=== PATIENT | female | born 1995 | race Caucasian/White ===

== ENCOUNTER 2016-05-24 13:28 | Emergency (ER) | payer MEDICAID, OTHER ==
[~2016-05-24 13:28] MED LIST: PREN1CAP33 PO
[2016-05-24 13:35] VITALS: BP 125/70; PULSE 88; RESP 15; TEMP 98; O2SAT 97
[2016-05-24 14:19] VITALS: BP 124/71; PULSE 89
[2016-05-24] MEDS ORDERED: ALUMINUM/MAGNESIUM/SIMETH 30 ML CUP PO ONE (15:15)
--- NOTE | 2016-05-24 15:44 | PD ---
HPI Chief Complaint Heartburn Date Seen: May 24, 2016 Time Seen: 15:00 Travel History International Travel<30 Days: No Contact w/Intl Traveler<30Days: No Known Affected Area: No History of Present Illness HPI 21-year-old 004 at 17 Weeks of Gestation, EDC 10/31/16, Patient Presents to OB ED Complaining of Epigastric Pain and Heartburn. Patient stated that Pain occurs Whenever She Eats, Drinks, hungry and at Nighttime. She denies cramping , contractions, leakage of fluids, vaginal bleeding. [facility] with [facility]. course is unremarkable. Patient speaks only [place] and interview was with an home health aide. Para: 4 : 5 Miscarriage: 0 : 0 History Past Medical History Narrative Medical Denies Medical History: Denies Significant Hx Obstetric History Obstetric History Spontaneous vaginal delivery 4 Past Surgical History Narrative Surgical Denies Surgical History: No Previous Surgery Family History Narrative Family History Maternal grandfather with diabetes Social History Alcohol Use: No Tobacco Use: No Substance Abuse: No Allergies-Medications (Allergen,Severity, Reaction): Coded Allergies: No Known Allergies (Unverified , 05/24/16) Home Meds Active Scripts Vit W/ Fe Polysacch C (Vitafol Fe+ 90-1-200 & 50 mg)1 Cap Cap1 Tab PO DAILY #30 BOTTLE Ref 11 Prov:Jazmine Frankel 05/07/16 Review of Systems Except as stated in HPI: all other systems reviewed are Neg Gastrointestinal: Indigestion, Other (epigastric pain heartburn) Physical Exam Narrative GENERAL: Well-nourished, well-developed patient. SKIN: Warm and dry. HEAD: Normocephalic and atraumatic. EYES: No scleral icterus. No injection or drainage. ENT: No nasal drainage noted. Mucous membranes pink. Airway patent. NECK: Supple, trachea midline. No JVD. CARDIOVASCULAR: Regular rate and rhythm without murmurs, gallops, or rubs. RESPIRATORY: Breath sounds equal bilaterally. No accessory muscle use. BREASTS: Bilateral exam showed no masses , no retractions, no nipple discharge. ABDOMEN/GI: Abdomen soft, gravid, non-tender, bowel sounds present, no rebound, no guarding Gravid to 17weeks size Fundal Height: 17 cm GENITOURINARY: External Genitalia: intact and normal in appearance BUS glands: Normal Cervix: Closed, long, posterior Dilatation: Closed Effacement: 30% Station: -3 Presentation: Cephalic Membranes: Intact Uterine Contractions: None Heart Tones by Doppler: 160's EXTREMITIES: No cyanosis or edema. BACK: Nontender without obvious deformity. No CVA tenderness. NEUROLOGICAL: Awake and alert. Motor and sensory grossly within normal limits. Five out of 5 muscle strength in all muscle groups. Normal speech. Data Data Vital Signs Reviewed: Yes Orders Vital Signs (Adult) .ON ADMISSION (05/24/16 14:48) ^ Labor Status (05/24/16 14:48) Urinalysis - C+S If Indicated (05/24/16 14:48) ^ Non Stress Test (05/24/16 14:48) ^ Hydration (05/24/16 14:48) Al-Mag Hy-Si 40-40-4 Mg/Ml Liq (Mag-Al P (05/24/16 15:15) MDM Diagnosis Diagnosis: Primary Impression: 17 weeks gestation of Additional Impression: GERD (gastroesophageal reflux disease) Qualified Code: K21.9 - Gastroesophageal reflux disease without esophagitis Disposition: 01 DISCHARGE HOME Condition: Stable Patient Instructions: General Instructions Additional Instructions: Patient reports improvement after Maalox was given for possible reflux disease. She is instructed to return to labor and delivery if increased symptoms, cramping, contractions, leakage of fluids, vaginal bleeding. Drink plenty of fluids. Keep office appointment as scheduled. Take medications as prescribed. Departure Forms: Tests/Procedures Salomón Szymanski MD May 24, 2016 15:43
[2016-05-24 16:17] LABS: BLOOD, URINE NEG (NEG); CALCIUM OXALATE CRYSTALS,URINE FEW /hpf; COMMENT (UR) CULT NOT INDICATED; CULTURE IF INDICATED CULT NOT INDICATED; GLUCOSE,URINE NEG (NEG); KETONE, URINE NEG (NEG); MUCUS URINE MOD /lpf (OCC); NITRITE,URINE NEG (NEG); SQUAMOUS EPITHELIAL CELL URINE 2 /hpf (0-5); URINE COLOR YELLOW (YELLW/STRAW)
== END 2016-05-24 15:49 | disposition home or self-care (01) ==
LOC: HOBED 13:28
DX: O26.92 Pregnancy related conditions, unspecified, second trimester (principal); K21.9 Gastro-esophageal reflux disease without esophagitis; Z3A.17 17 weeks gestation of pregnancy
CPT/HCPCS: 81001; 99284

== ENCOUNTER 2016-06-02 16:42 | Emergency (ER) | payer MEDICAID ==
--- NOTE | 2016-06-02 18:03 | PD ---
HPI Chief Complaint nosebleed Date Seen: Jun 02, 2016 Travel History International Travel<30 Days: Yes Contact w/Intl Traveler<30Days: Yes (travels to/from [place] <60 days) History of Present Illness HPI Mrs. Garcia is a 21 yo at an estimated 18 3/7 weeks (ROBERT 10/31/2016 ) patient of [facility] who presents with complaint of nose bleed over the past 2 days. Patient states that bleeding began yesterday and lasted for multiple hours prior to ceasing spontaneously. Patient states that bleeding began again today. Patient reports concern regarding her past diagnosis of anemia earlier this [per review of EMR, patient had hemoglobin of 9.8 in 04/2016] and requests additional checking of her hemoglobin. Patient also reports headache prior to onset of nosebleed. Patient denies any associated nausea or visual changes. It and denies any history of hypertension/ gestational hypertension during this or her prior pregnancies. Regarding patient's nosebleed, she denies any current upper respiratory cough, congestion, or runny nose. Patient states that she has had periodic nosebleeds in the past. Patient denies knowledge of bleeding disorder or familial bleeding. No reported shortness of breath, fever/chills, vaginal bleeding, abdominal pain, or dysuria. Patient states that she gets her care at [facility] with Fiona Macielpuis; she received initial care in [place]. Patient's upcoming appointment is scheduled for later this week. Regarding patient's prior diagnosis of anemia this gestation, she states that she was prescribed iron supplementation that she was unable to tolerate this due to abdominal pain and diarrhea. Patient states that she was previously prescribed ferrous sulfate of unknown quantity Para: 4 : 5 History Past Medical History Narrative Medical Anemia Obstetric History Obstetric History 104 Children from 6 <1 years old 3 full-term spontaneous vaginal deliveries 1 spontaneous vaginal delivery at 36 weeks No reported prior complications Past Surgical History Narrative Surgical None reported Surgical History: No Previous Surgery Family History Narrative Family History Patient denies family history of any bleeding disorder Social History Narrative Social History Per EMR Alcohol Use: No Tobacco Use: No Substance Abuse: No Allergies-Medications (Allergen,Severity, Reaction): Coded Allergies: No Known Allergies (Unverified , 05/24/16) Home Meds Active Scripts Vit W/ Fe Polysacch C (Vitafol Fe+ 90-1-200 & 50 mg)1 Cap Cap1 Tab PO DAILY #30 BOTTLE Ref 11 Prov:Jazmine Frankel 05/07/16 Review of Systems General / Constitutional: No: Fever Eyes: No: Blurred Vision HENT: Headaches Cardiovascular: No: Chest Pain or Discomfort Respiratory: No: Cough, Short of Breath Gastrointestinal: No: Nausea, Vomiting, Abdominal Pain Genitourinary: No: Dysuria Skin: No Rash Physical Exam Narrative Vital signs: Respiratory rate 20 Temp 98.2 Blood pressure 128/70 MHR 108 initially; decreased <100bpm to auscultation when sitting GENERAL: Well-nourished, well-developed patient. SKIN: Warm and dry. No rashes HEAD: Normocephalic. No pain to palpation of frontal or maxillary sinuses EYES: No scleral icterus. No conjunctival injection. EOM grossly intact. ENT: Left naris with minimal quantity of blood in anterior lateral nostril, no visible polyps or bleeding posteriorly. No clear active bleeding. No significant surrounding erythema. Right naris appears normal without visible bleeding or erythema. NECK: No appreciated submandibular or cervical lymphadenopathy CARDIOVASCULAR: Regular rate and rhythm without murmurs to auscultation RESPIRATORY: Clear to escalation bilaterally; normal rate ABDOMEN/GI: Abdomen soft, non-tender, gravid EXTREMITIES: No cyanosis or edema. NEUROLOGICAL: Awake and alert. Motor and sensory function grossly within normal limits. FHT's: HR 140 bpm MDM Medical Record Reviewed: Yes Narrative Course / MDM Mrs. Garcia is a 21 yo at an estimated 18 3/7 weeks: Assessment: Vitals reassuring- No HTN, MHR initially elevated >100 but subsequently below 100 FHR reassuring (140) Nose- with signs of prior anterior bleed without active bleeding or posterior bleeding; looks like small laceration Anemia- Hgb 9.8 on prior labs in 04/2017 Plan: Patient advised to follow-up with her provider later this week as scheduled Patient educated on anemia during ; she was counseled to discuss this diagnosis and the possibility of further testing further with her provider. Patient counseled to take OTC ferrous fumarate in case this is better tolerated. Patient counseled that she may experience recurrence of nosebleed Patient may return to OB ED or provider for further concerns Diagnosis Diagnosis: Primary Impression: Nosebleed Additional Impression: Anemia during Disposition: 01 DISCHARGE HOME Condition: Stable Referrals: [facility] days Patient Instructions: Anemia (GEN), General Instructions, Nosebleed (GEN) Jonathon Cline MD R2 Jun 02, 2016 18:03
== END 2016-06-02 18:26 | disposition home or self-care (01) ==
LOC: HOBED 16:42
DX: O99.012 Anemia complicating pregnancy, second trimester (principal); R04.0 Epistaxis; Z3A.18 18 weeks gestation of pregnancy
CPT/HCPCS: 99283